=== PATIENT | female | born 1980 | race African-American/Black ===

== ENCOUNTER 2018-10-17 08:18 | Emergency (ER) | payer SELFPAY ==
--- NOTE | 2018-10-17 08:58 | RAD ---
TWO VIEWS RIGHT HIP: Comparison: None. History: Right hip pain. FINDINGS: Two views of the right hip shows no evidence of acute fracture or dislocation. No significant degener ative changes are seen. No soft tissue swelling is present. IMPRESSION: Unremarkable exam. POS: SERGE
--- NOTE | 2018-10-17 08:59 | RAD ---
SINGLE VIEW OF THE PELVIS: Comparison: None. History: Right hip pain for several months. FINDINGS: Single view of the pelvis shows no acute fracture or dislocation. No degenerative change is seen in e ither hip. IMPRESSION: Unremarkable exam. POS: C
== END 2018-10-17 09:36 | disposition home or self-care (01) ==
LOC: ERS 08:18
DX: M25.551 Pain in right hip (principal); F17.210 Nicotine dependence, cigarettes, uncomplicated; G43.909 Migraine, unspecified, not intractable, without status migrainosus
CPT/HCPCS: 72170

== ENCOUNTER 2020-01-17 10:08 | Outpatient (CLI) | payer OTHER ==
--- NOTE | 2020-01-17 10:55 | RAD ---
EXAM: Neutral, flexion, and extension lateral views cervical spine PROVIDED CLINICAL HISTORY: Cervical spine pain. Shoulder pain. COMPARISON: None FINDINGS: Vertebral body heights and intervertebral disc spaces of the cervical spine have a normal appearance. Interspinous distances are within normal limits. No fracture or subluxation is seen based on lateral images of the cervical spine. Prevertebral soft tissues are within normal limits. IMPRESSION: No acute findings.
--- NOTE | 2020-01-17 14:08 | RAD ---
LUMBAR SPINE: 01/17/20 Three lateral views were obtained with neutral flexion and extension. INDICATIONS: Back pain. Lumbar vertebrae maintain normal height and alignment. Disc spaces are normally maintained. There is no evidence of spondylolisthesis. No change in alignment seen with flexion or extension. Mild facet hypertrophy at L4-5 and L5-S1. No other significant degenerative change. IMPRESSION: Mild facet hypertrophy at L4-5 and L5-S1. Lumbar spine otherwise unremarkable. POS: C
== END 2020-01-17 10:09 | disposition home or self-care (01) ==
LOC: RAD 10:08
PROVIDERS: ATTEND Nurse Practitioner Family
DX: M54.2 Cervicalgia (principal); M54.5 Low back pain; M51.86 Other intervertebral disc disorders, lumbar region; M51.87 Other intervertebral disc disorders, lumbosacral region
CPT/HCPCS: 72050; 72100

== ENCOUNTER 2020-09-12 17:01 | Emergency (ER) | payer OTHER ==
[2020-09-12] MEDS ORDERED: Ketorolac Tromethamine 30 MG/ML VIAL ONE (19:27)
[2020-09-12] MEDS ORDERED: Morphine 4 MG/ML VIAL ONE (19:27)
== END 2020-09-12 20:54 | disposition home or self-care (01) ==
LOC: ERS 17:01
DX: R51.9 Headache, unspecified (principal); Z79.899 Other long term (current) drug therapy; F17.210 Nicotine dependence, cigarettes, uncomplicated
CPT/HCPCS: 96372; 99283; J1885; J2270

== ENCOUNTER 2021-01-05 14:18 | Emergency (ER) | payer OTHER ==
[2021-01-05] MEDS ORDERED: Ketorolac Tromethamine 30 MG/ML VIAL ONE (16:46)
[2021-01-05] MEDS ORDERED: HYDROcodone/Acetaminophen 10/325 mg Tablet ONE (16:46)
== END 2021-01-05 17:08 | disposition home or self-care (01) ==
LOC: ERS 14:18
DX: G89.29 Other chronic pain (principal); M54.2 Cervicalgia; Z79.899 Other long term (current) drug therapy; Z79.891 Long term (current) use of opiate analgesic; G43.909 Migraine, unspecified, not intractable, without status migrainosus; F17.210 Nicotine dependence, cigarettes, uncomplicated
CPT/HCPCS: 96372; 99283; J1885

== ENCOUNTER 2021-01-28 09:48 | Outpatient (CLI) | payer OTHER | END 2021-01-28 09:49 | disposition home or self-care (01) | LOC: BICRAD 09:48 | PROVIDERS: ATTEND Neurological Surgery | DX: M47.22 Other spondylosis with radiculopathy, cervical region (principal) | CPT/HCPCS: 72040 ==

== ENCOUNTER 2021-01-29 20:15 | Emergency (ER) | payer OTHER ==
[2021-01-29] MEDS ORDERED: Cyclobenzaprine 10 MG TAB ONE (22:04)
[2021-01-29] MEDS ORDERED: Ketorolac Tromethamine 30 MG/ML VIAL ONE (22:04)
== END 2021-01-29 23:26 | disposition home or self-care (01) ==
LOC: ERS 20:15
DX: S16.1XXA Strain of muscle, fascia and tendon at neck level, initial encounter (principal); F17.210 Nicotine dependence, cigarettes, uncomplicated; G43.909 Migraine, unspecified, not intractable, without status migrainosus; Z79.899 Other long term (current) drug therapy; V49.40XA Driver injured in collision with unspecified motor vehicles in traffic accident, initial encounter
CPT/HCPCS: 72125; 96372; J1885

== ENCOUNTER 2021-04-30 05:39 | Day surgery (SDC) | payer OTHER ==
[2021-04-30] MEDS ORDERED: Neomycin-Polymyxin 1 ML AMP ONE (06:09)
[2021-04-30] MEDS ORDERED: Thrombin 5000 UNITS/5 ML VIAL ONE (06:09)
[2021-04-30] MEDS ORDERED: Midazolam HCl 2 mg/2 ml Vial ONE (06:45)
[2021-04-30] MEDS ORDERED: Fentanyl 250 MCG/5 ML VIAL ONE (06:47)
[2021-04-30] MEDS ORDERED: Ondansetron PF 4 MG/2 ML Vial ONE (06:59)
[2021-04-30] MEDS ORDERED: Rocuronium Bromide 10 MG/ML (10ML VIAL) ONE (06:59)
[2021-04-30] MEDS ORDERED: Lidocaine 1% PF 5 ML VIAL ONE (06:59)
[2021-04-30] MEDS ORDERED: PROPOFOL 200 MG/20 ML VIAL ONE (06:59)
[2021-04-30] MEDS ORDERED: Esmolol 100 MG/10 ML VIAL ONE ×2 (06:59→08:56)
[2021-04-30] MEDS ORDERED: Glycopyrrolate 0.2 MG/ML 5 ML SYRINGE ONE (06:59)
[2021-04-30] MEDS ORDERED: PHENYLEPHRINE-NS 100 MCG/ML 10 ML SYRINGE ONE (06:59)
[2021-04-30] MEDS ORDERED: Dexamethasone 20 MG/5 ML VIAL ONE (06:59)
[2021-04-30] MEDS ORDERED: HYDROmorphone 2 MG/ML VIAL ONE (10:32)
[2021-04-30] MEDS ORDERED: Fentanyl 100 MCG/2 ML VIAL ONE ×3 (10:32→12:04)
[2021-04-30] MEDS ORDERED: HYDROcodone/Acetaminophen 5/325 mg Tablet ONE (13:18)
== END 2021-04-30 13:50 | disposition home or self-care (01) ==
LOC: SDC 05:39
PROVIDERS: ATTEND Neurological Surgery
PROC: 0RT30ZZ Resection of Cervical Vertebral Disc, Open Approach (ICD-10-PCS; principal; 2021-04-30)
PROC: 0RG10A0 Fusion of Cervical Vertebral Joint with Interbody Fusion Device, Anterior Approach, Anterior Column, Open Approach (ICD-10-PCS; principal; 2021-04-30)
DX: M50.11 Cervical disc disorder with radiculopathy, high cervical region (principal); Z79.899 Other long term (current) drug therapy
CPT/HCPCS: 76000; C1713; C1776; J0690; J1170; J2250; J3010

== ENCOUNTER 2021-06-30 13:15 | Outpatient (CLI) | payer OTHER | END 2021-06-30 13:16 | disposition home or self-care (01) | LOC: BICRAD 13:15 | PROVIDERS: ATTEND Neurological Surgery | DX: M54.12 Radiculopathy, cervical region (principal); Z98.1 Arthrodesis status; M79.89 Other specified soft tissue disorders | CPT/HCPCS: 72040 ==

== ENCOUNTER 2022-03-22 09:57 | Outpatient (CLI) | payer OTHER | END 2022-03-22 09:58 | disposition home or self-care (01) | LOC: BICMAMMO 09:57 | PROVIDERS: ATTEND Family Medicine | DX: Z12.31 Encounter for screening mammogram for malignant neoplasm of breast (principal); Z91.89 Other specified personal risk factors, not elsewhere classified | CPT/HCPCS: 77067 ==

== ENCOUNTER 2022-12-30 19:00 | Outpatient (CLI) | payer OTHER, MEDICARE | END 2022-12-30 19:01 | disposition home or self-care (01) | LOC: SLEEPLAB 19:00 | PROVIDERS: ATTEND Family Medicine | DX: G47.33 Obstructive sleep apnea (adult) (pediatric) (principal); G47.10 Hypersomnia, unspecified; R53.83 Other fatigue; R09.89 Other specified symptoms and signs involving the circulatory and respiratory systems; E66.9 Obesity, unspecified; R06.83 Snoring; F41.9 Anxiety disorder, unspecified; F32.A Depression, unspecified; G47.00 Insomnia, unspecified; I10 Essential (primary) hypertension | CPT/HCPCS: 95810 ==

== ENCOUNTER 2023-05-09 09:42 | Outpatient (CLI) | payer OTHER, MEDICAID | END 2023-05-09 09:43 | disposition home or self-care (01) | LOC: BICMAMMO 09:42 | PROVIDERS: ATTEND Family Medicine | DX: Z12.31 Encounter for screening mammogram for malignant neoplasm of breast (principal) | CPT/HCPCS: 77063; 77067 ==

== ENCOUNTER → 2023-05-16 | Day surgery (SDC) | payer OTHER, MEDICAID ==
[~2023-05-16] MED LIST: Oxymetazoline HCl 0.05% (30 ML BOT) ONE
== END ==
LOC: ENDO/OP 12:02
PROVIDERS: ATTEND Physician Assistant Medical
DX: K44.9 Diaphragmatic hernia without obstruction or gangrene (principal); K21.9 Gastro-esophageal reflux disease without esophagitis; R93.3 Abnormal findings on diagnostic imaging of other parts of digestive tract; G47.30 Sleep apnea, unspecified; F32.A Depression, unspecified; F17.210 Nicotine dependence, cigarettes, uncomplicated; Z88.8 Allergy status to other drugs, medicaments and biological substances; Z88.6 Allergy status to analgesic agent; Z79.899 Other long term (current) drug therapy
CPT/HCPCS: 91010

== ENCOUNTER 2023-06-14 06:22 | Day surgery (SDC) | payer OTHER, MEDICAID ==
[2023-06-12 10:51] VITALS: BMI 46.4
[2023-06-14] MEDS ORDERED: Sodium Chloride 0.9% 100 ML ONE (07:53)
[2023-06-14] MEDS ORDERED: CEFAZOLIN 2 GM VIAL ONE (07:53)
[2023-06-14] MEDS ORDERED: Famotidine/PF 20 mg/2ml Vial ONE (08:45)
[2023-06-14] MEDS ORDERED: EPINEPHrine 1 MG/ML AMP ONE (09:12)
[2023-06-14] MEDS ORDERED: Bupivacaine 0.25% HCL 30 ML VIAL ONE (09:12)
[2023-06-14] MEDS ORDERED: fentaNYL PF 100 MCG/2 ML SYRINGE ONE (09:18)
[2023-06-14] MEDS ORDERED: SUGAMMADEX SODIUM 200 MG/2 ML VIAL ONE (09:18)
[2023-06-14] MEDS ORDERED: Midazolam HCl 2 mg/2 ml Vial ONE (09:29)
[2023-06-14] MEDS ORDERED: Esmolol 100 MG/10 ML VIAL ONE (09:41)
[2023-06-14] MEDS ORDERED: PROPOFOL 200 MG/20 ML VIAL ONE (09:41)
[2023-06-14] MEDS ORDERED: Ondansetron PF 4 MG/2 ML Vial ONE (09:41)
[2023-06-14] MEDS ORDERED: Succinylcholine 200 MG/10 ml SYRINGE FS ONE (09:41)
[2023-06-14] MEDS ORDERED: Rocuronium Bromide 10 MG/ML (10ML VIAL) ONE (09:41)
[2023-06-14] MEDS ORDERED: PHENYLEPHRINE-NS 100 MCG/ML 10 ML SYRINGE ONE (09:41)
[2023-06-14] MEDS ORDERED: Lidocaine 1% PF 5 ML VIAL ONE (09:41)
[2023-06-14] MEDS ORDERED: Ketorolac Tromethamine 30 MG/ML VIAL ONE ×2 (09:41→11:53)
[2023-06-14] MEDS ORDERED: fentaNYL 50 mcg/mL 1 mL Vial ONE ×3 (11:53→12:47)
[2023-06-14] MEDS ORDERED: Promethazine HCl 25 MG/ML VIAL ONE (13:08)
[2023-06-14] MEDS ORDERED: HYDROmorphone 0.5 MG/0.5 ML SYRINGE ONE ×3 (13:10→13:52)
== END 2023-06-14 16:00 | disposition home or self-care (01) ==
LOC: SDC 06:22
PROVIDERS: ATTEND Surgery
PROC: 0WUF4JZ Supplement Abdominal Wall with Synthetic Substitute, Percutaneous Endoscopic Approach (ICD-10-PCS; principal; 2023-06-14)
PROC: 0DV44ZZ Restriction of Esophagogastric Junction, Percutaneous Endoscopic Approach (ICD-10-PCS; 2023-06-14)
PROC: 0BQT4ZZ Repair Diaphragm, Percutaneous Endoscopic Approach (ICD-10-PCS; 2023-06-14)
DX: K44.9 Diaphragmatic hernia without obstruction or gangrene (principal); K43.9 Ventral hernia without obstruction or gangrene; K21.00 Gastro-esophageal reflux disease with esophagitis, without bleeding; F17.200 Nicotine dependence, unspecified, uncomplicated; F32.A Depression, unspecified; G43.909 Migraine, unspecified, not intractable, without status migrainosus; M19.90 Unspecified osteoarthritis, unspecified site; Z88.5 Allergy status to narcotic agent; Z88.8 Allergy status to other drugs, medicaments and biological substances; Z79.899 Other long term (current) drug therapy
CPT/HCPCS: 43281; 49593; J3010; C1781; J0171; J1170; J1885; J2250; J2405; J2550; J2704; J3490; S0020; S0028

== ENCOUNTER 2023-07-18 09:40 | Emergency (ER) | payer OTHER ==
[2023-07-18] MEDS ORDERED: Famotidine 20 MG TAB ONE (10:43)
[2023-07-18] MEDS ORDERED: predniSONE 20 MG TAB ONE (10:43)
[2023-07-18] MEDS ORDERED: Loratadine 10 MG TAB PO SCH (11:00)
[2023-07-18] MEDS ORDERED: Loratadine 10 MG TAB ONE (11:19)
== END 2023-07-18 12:15 | disposition home or self-care (01) ==
LOC: ERS 09:40
DX: T78.40XA Allergy, unspecified, initial encounter (principal); L50.9 Urticaria, unspecified; F17.210 Nicotine dependence, cigarettes, uncomplicated
CPT/HCPCS: 99283; J7512

== ENCOUNTER 2024-05-10 09:25 | Outpatient (CLI) | payer OTHER | END 2024-05-10 09:26 | disposition home or self-care (01) | LOC: BICMAMMO 09:25 | PROVIDERS: ATTEND Family Medicine | DX: Z12.31 Encounter for screening mammogram for malignant neoplasm of breast (principal); Z91.89 Other specified personal risk factors, not elsewhere classified | CPT/HCPCS: 77063; 77067 ==

== ENCOUNTER 2024-06-24 10:50 | Emergency (ER) | payer OTHER ==
[~2024-06-24 10:50] MED LIST changes: +Iopamidol-370 76% 500 ML MDV (1 ML CHARGE) ONE; -Oxymetazoline HCl 0.05% (30 ML BOT) ONE
[2024-06-24] MEDS ORDERED: Famotidine 20 MG TAB ONE (11:29)
[2024-06-24] MEDS ORDERED: Mag-Al 1200 mg/1200 mg/30 ML UDCUP ONE (11:30)
[2024-06-24] MEDS ORDERED: Lidocaine Viscous Sol 2% 15 ml UD Cup ONE (11:30)
[2024-06-24 12:20] LABS: #Basophils 0.05 10x3/uL (0.0-0.2); %Basophils 0.6 % (0.0-1.0); %Lymphocytes 39.7 % (21.0-51.0); %Monocytes 6.6 % (0.0-10.0); %Neutrophils 51.8 % (42.0-75.0); Hematocrit 41.2 % (36.0-47.0); Mean Corpuscular HGB CONC 31.6 g/dL (32.0-36.0); Mean Corpuscular Hemoglobin 26.2 pg (27.0-31.0); Mean Corpuscular Volume 83.1 fL (78.0-98.0); Mean Platelet Volume 9.5 fL (7.4-10.4); Platelet Count 341 10x3/uL (130-400); RBC Distribution Width 13.9 % (11.5-14.5); Red Blood Cell (RBC) Count 4.96 mill/uL (4.20-5.40)
[2024-06-24 12:38] LABS: BHCG - Serum Negative (NEGATIVE); Pregs Control Background? CLEAR/WHITE (CLR/WHITE); Pregs Control Bar Appear? YES (CONTROL BAR)
[2024-06-24 12:40] LABS: ALT (SGPT) 12 U/L (8-55); AST (SGOT) 14 U/L (5-34); Albumin 3.6 g/dL (3.5-5.0); Alkaline Phosphatase 67 U/L (40-110); Anion Gap 12 mmol/L (10-20); BUN (Urea Nitrogen) 10 mg/dL (7.0-18.7); Bilirubin, Total 0.5 mg/dL (0.2-1.2); Calc. Creatinine Clearance 0 mL/min (70-130); Calcium 9.4 mg/dL (7.8-10.44); Carbon Dioxide 26 mmol/L (22-29); Chloride 108 mmol/L (98-107); Estimated GFR 73; Glucose 80 mg/dL (70-105); Lipase 27 U/L (8-78); Magnesium 2.3 mg/dL (1.6-2.6); Potassium 3.7 mmol/L (3.5-5.1); Protein, Total 7.6 g/dL (6.0-8.3); Sodium 142 mmol/L (136-145)
[2024-06-24 12:45] LABS: Troponin I Less than 0.010 ng/mL (< 0.028)
[2024-06-24] MEDS ORDERED: Ondansetron PF 4 MG/2 ML Vial ONE (15:32)
[2024-06-24] MEDS ORDERED: Morphine 4 MG/ML VIAL ONE (15:32)
== END 2024-06-24 15:57 | disposition home or self-care (01) ==
LOC: ERS 10:50
DX: K29.00 Acute gastritis without bleeding (principal); K21.9 Gastro-esophageal reflux disease without esophagitis; F17.210 Nicotine dependence, cigarettes, uncomplicated; Z79.899 Other long term (current) drug therapy
CPT/HCPCS: 71045; 74177; 80053; 83690; 83735; 84484; 84703; 85025; 93005; 96374; 96375; 99284; J2272; J2405; Q9967

== ENCOUNTER 2024-08-06 13:00 | Outpatient (CLI) | payer OTHER ==
[2024-08-06] MEDS ORDERED: Sterile Water 10 ML ONE (14:04)
[2024-08-06] MEDS ORDERED: Sincalide 5 MCG VIAL ONE (14:04)
[2024-08-06] MEDS ORDERED: Bacteriostatic Normal Saline 30 ML VIAL ONE (14:05)
== END 2024-08-06 13:01 | disposition home or self-care (01) ==
LOC: NM 13:00
PROVIDERS: ATTEND Physician Assistant Medical
DX: K44.9 Diaphragmatic hernia without obstruction or gangrene (principal); K43.9 Ventral hernia without obstruction or gangrene; R93.3 Abnormal findings on diagnostic imaging of other parts of digestive tract; K82.8 Other specified diseases of gallbladder; R10.10 Upper abdominal pain, unspecified
CPT/HCPCS: 78227; J2805

== ENCOUNTER 2024-09-12 06:05 | Day surgery (SDC) | payer OTHER, MEDICAID ==
[2024-09-09 14:58] VITALS: BMI 40.4
[2024-09-12] MEDS ORDERED: Midazolam HCl 2 mg/2 ml Vial ONE (07:12)
[2024-09-12] MEDS ORDERED: PROPOFOL 20 ML ONE (07:12)
[2024-09-12] MEDS ORDERED: Lidocaine 1% PF 5 ML VIAL ONE (08:05)
== END 2024-09-12 09:17 | disposition home or self-care (01) ==
LOC: SDC 06:05
PROVIDERS: ATTEND Internal Medicine
PROC: 0DB98ZX Excision of Duodenum, Via Natural or Artificial Opening Endoscopic, Diagnostic (ICD-10-PCS; principal; 2024-09-12)
DX: K82.8 Other specified diseases of gallbladder (principal); K43.9 Ventral hernia without obstruction or gangrene; I10 Essential (primary) hypertension; K21.9 Gastro-esophageal reflux disease without esophagitis; E11.42 Type 2 diabetes mellitus with diabetic polyneuropathy; F17.200 Nicotine dependence, unspecified, uncomplicated; G47.30 Sleep apnea, unspecified; Z87.19 Personal history of other diseases of the digestive system; Z98.890 Other specified postprocedural states; Z98.1 Arthrodesis status; Z79.899 Other long term (current) drug therapy
CPT/HCPCS: 43239; 82962; J2250; J2704; 36416; 88305

== ENCOUNTER 2024-09-23 07:56 | Outpatient (CLI) | payer OTHER, MEDICAID | END 2024-09-23 07:57 | disposition home or self-care (01) | LOC: NM 07:56 | PROVIDERS: ATTEND Internal Medicine | DX: K21.9 Gastro-esophageal reflux disease without esophagitis (principal); R10.10 Upper abdominal pain, unspecified; K31.84 Gastroparesis | CPT/HCPCS: 78264; A9541 ==

== ENCOUNTER 2024-10-04 07:44 | Emergency (ER) | payer OTHER ==
[2024-10-04] MEDS ORDERED: Ketorolac Tromethamine 30 MG (1 mL) VIAL ONE (09:04)
[2024-10-04] MEDS ORDERED: Dexamethasone 10 MG/ML VIAL ONE (09:04)
== END 2024-10-04 09:40 | disposition home or self-care (01) ==
LOC: ERS 07:44
DX: J02.9 Acute pharyngitis, unspecified (principal); F17.210 Nicotine dependence, cigarettes, uncomplicated
CPT/HCPCS: 87081; 87430; 96372; 99283; J1100; J1885

== ENCOUNTER 2025-05-13 08:37 | Outpatient (CLI) | payer OTHER, MEDICAID | END 2025-05-13 08:38 | disposition home or self-care (01) | LOC: BICMAMMO 08:37 | PROVIDERS: ATTEND Family Medicine | DX: Z12.31 Encounter for screening mammogram for malignant neoplasm of breast (principal); Z91.89 Other specified personal risk factors, not elsewhere classified | CPT/HCPCS: 77063; 77067 ==